=== PATIENT | male | born 1955 | race Caucasian/White ===

== ENCOUNTER → 2018-06-11 10:38 | Outpatient (CLI) | payer OTHER, SELFPAY ==
--- NOTE | 2018-06-11 | DI.RAD.S_ITS ---
PROCEDURE: XR CHEST 2V INDICATIONS: NIGHT SWEATS TECHNIQUE: 2 views of the chest were acquired. COMPARISON: [facility], , CHEST 2 VIEW, 07/26/2010, 14:02. FINDINGS: Surgical changes and devices: None. Lungs and pleura: Lungs are clear. No pleural effusions or pneumothorax. Mediastinum: Mediastinal contours are normal. Heart size is normal. Bones and chest wall: No suspicious bony abnormalities. Soft tissues appear unremarkable. IMPRESSION: No acute cardiopulmonary disease. Dictated by: [facility] Interpreted: Rodríguez Cid MD on 06/11/2018 at 11:11 Approved by: Rodríguez Cid M.D. on 06/11/2018 at 17:00
== END ==
PROVIDERS: Family Provider Family Medicine; PCP Family Medicine; Visit Provider Family Medicine
DX: R61 Generalized hyperhidrosis (principal)
CPT/HCPCS: 71046

== ENCOUNTER → 2018-06-15 09:22 | Outpatient (CLI) | payer OTHER, SELFPAY ==
--- NOTE | 2018-06-15 | DI.ECHO.S_ITS ---
[facility] +---------+ [facility] +---------+ : : [address] : [place] [address] : : : : [id number] : : : : Phone: [phone]+ Echocardiogram Report + + :Name: DIANE OQUENDO Study Date: 06/15/2018 Height: 72 in : :[facility] Weight: 253 lb : : Gender: Male BSA: 2.4 m2 : :: 1955 Age: 63 yrs BP: 144/88 mmHg: :Reason For Study: Murmur : : Performed By: Amanda Rodriguez : :Referring: HUY VALLE : + + Interpretation Summary Left ventricular systolic function is normal without focal wall motion abnormalities with the ejection fraction visually estimated to be 60-65% with mild-moderate concentric left ventricular hypertrophy. Diastolic parameters suggest a relaxation abnormality of the left ventricle, consistent with probable normal filling pressures. The right ventricle is normal in size and function. The right ventricular systolic pressure is estimated to be at least 28 mmHg based on an estimated right atrial pressure of 3 mm Hg. The right atrium is mildly dilated while left atrial size is normal. A possible patent foramen ovale is suspected. The aortic valve is not well visualized but appears to be moderately calcified with moderately reduced leaflet mobility and a bicuspid aortic valve cannot be excluded. There is probable severe aortic stenosis on the basis of a peak aortic velocity of 4.6 m/sec and a mean gradient of 54 mmHg with a calculated aortic valve area of 0.7 cm2, although visually leaflet mobility appears to be better than this indicates with a planimetered aortic valve area of 1.2 automation software engineer?. Clinical correlation is recommended and if the patient has symptoms of aortic stenosis, cardiology consultation is recommended. No aortic regurgitation is present. There is no other significant valvular heart disease. The ascending aorta is moderately enlarged. Procedure: A two-dimensional transthoracic echocardiogram with color flow and Doppler was performed. The study quality was technically adequate. There is no prior echocardiogram noted for this patient. The patient was in normal sinus rhythm during the exam. Left Ventricle: The left ventricle is normal in size. There is mild-moderate concentric left ventricular hypertrophy. There is no echo evidence for significant left ventricular outflow tract obstruction. Left ventricular systolic function is normal without focal wall motion abnormalities. The ejection fraction is estimated to be 60-65%. Diastolic parameters suggest a relaxation abnormality of the left ventricle, consistent with probable normal filling pressures. Right Ventricle: The right ventricle is normal in size and function. Atria: The left atrial size is normal. The right atrium is mildly dilated. A patent foramen ovale is suspected. Mitral Valve: There is mild mitral annular calcification. There is no mitral regurgitation noted. There is trace mitral regurgitation. Aortic Valve: The aortic valve is not well visualized. Leaflet mobility is moderately reduced. The aortic valve is moderately calcified. A bicuspid aortic valve cannot be excluded. There is severe aortic stenosis. The peak aortic velocity is 4.6 m/sec. The aortic valve mean gradient is 54 mmHg. The calculated aortic valve area is 0.7 cm2. The aortic valve area is 1.2 centimeters squared by planimetry. Severity ratio is 0.23. No aortic regurgitation is present. Tricuspid Valve: The tricuspid valve is normal in structure and function. There is a trace or physiologic amount of tricuspid regurgitation. The right ventricular systolic pressure is estimated to be at least 28 mmHg based on an estimated right atrial pressure of 3 mm Hg. Pulmonic Valve: The pulmonic valve is not well seen, but is grossly normal. There is trace pulmonic regurgitation. There is no other significant valvular heart disease. Great Vessels: The aortic root is normal size. The ascending aorta is moderately enlarged. The IVC is of normal diameter and collapses greater than 50% with a sniff. This suggests a low right atrial pressure of 3 mm Hg. Pericardium/ Pleura There is no pericardial effusion. There is no pleural effusion. MMode/2D Measurements & Calculations LVIDd: 4.9 cm LVOT diam: 2.0 cm LVIDs: 2.7 cm Ao root diam: 3.3 cm FS: 45.1 % Aortic Jxn: 3.0 cm IVSd: 1.5 cm asc Aorta Diam: 4.2 cm LVPWd: 1.0 cm Ao Arch Diam (Prox Trans): 2.9 cm LV hui. diameter/BSA (cm/m^2): 2.1 LV sys. diameter/BSA (cm/m^2): 1.1 LA dimension: 4.1 cm RA long axis: 5.2 cm LA A2 area: 17.6 cm2 RA area: 24.2 cm2 LA A4 area: 22.1 cm2 RA vol: 95.9 ml LA length (vol): 5.6 cm RA : 40.7 ml/m2 LA vol: 58.9 ml IVC diam: 1.3 cm LA vol index: 25.0 ml/m2 RVDd major: 6.8 cm RVD1 (basal): 4.2 cm RVD2 (mid): 3.7 cm Doppler Measurements & Calculations Ao V2 max: 464.7 cm/sec LVOT Max Aaron: 108.7 cm/sec Ao V2 mean: 346.7 cm/sec LV V1 max P.7 mmHg Ao max P.4 mmHg LV V1 VTI: 24.8 cm Ao mean P.5 mmHg JAMSHID(I,D): 0.70 cm2 Ao V2 VTI: 106.7 cm JAMSHID(V,D): 0.71 cm2 sev ratio: 0.23 JAMSHID indexed to BSA (cm^2/m^2): 0.30 MV E max aaron: 81.0 cm/sec TR max aaron: 250.3 cm/sec MV A max aaron: 97.7 cm/sec TR max P.1 mmHg MV E/A: 0.83 PA V2 max: 89.1 cm/sec Med Peak E' Aaron: 4.7 cm/sec PA V2 mean: 53.5 cm/sec E/E' med: 17.1 PA mean P.4 mmHg Lat Peak E' Aaron: 4.9 cm/sec PA Accel Time: 0.12 sec E/E' lat: 16.4 E/e' average: 16.7 MV dec time: 0.27 sec MV P1/2t: 79.8 msec MV P1/2t max aaron: 80.5 cm/sec SV(LVOT): 74.9 ml MVA(P1/2t): 2.8 cm2 Reading Physician:ROJELIO
== END ==
PROVIDERS: Family Provider Family Medicine; PCP Family Medicine; Visit Provider Family Medicine
DX: I35.0 Nonrheumatic aortic (valve) stenosis (principal); R01.1 Cardiac murmur, unspecified
CPT/HCPCS: 93306

== ENCOUNTER → 2019-03-18 06:44 | Outpatient (CLI) | payer OTHER, SELFPAY ==
--- NOTE | 2019-03-18 | DI.ECHO.S_ITS ---
[facility] +---------+ Hospital +---------+ : : [address] [place] : : : : [id number] : : : : Phone: [phone]+ Echocardiogram Report + + :Name: DIANE OQUENDO Study Date: 03/18/2019 Height: 72 in : :[facility] Exam Location: [place] Weight: 249 lb : : Gender: Male BSA: 2.3 m2 : :: 1955 Age: 63 yrs BP: 132/70 mmHg: :Reason For Study: Aortic valve stenosis : :Ordering Physician: Payton Alas : :[place] Performed By: Donna Page : + + Interpretation Summary 1) Normal left ventricular size, wall motion, and systolic function (EF 60- 65%). 2) Normal right ventricular size and function. 3) Moderate biatrial enlargement. 4) Severe aortic stenosis (valve area 0.82cm2, mean gradient 59mmHg, severity ratio 0.26). 5) Mildly enlarged ascending aorta (4.1cm diameter). 6) Compared to the Echo done 06/15/2018, no significant change. Procedure: A two-dimensional transthoracic echocardiogram with color flow and Doppler was performed. The study quality was technically adequate. Comparison is made with the echocardiogram of 06/15/2018. The patient was in normal sinus rhythm during the exam. Left Ventricle: Proximal septal thickening is noted. Left ventricular wall thickness is borderline increased. The left ventricle is normal in size. The ejection fraction is estimated to be 60-65%. There are no focal wall motion abnormalities. Right Ventricle: The right ventricle is normal in size and function. Atria: Both atria are moderately dilated. There is no Doppler evidence for an interatrial shunt. Mitral Valve: There is mild mitral annular calcification. The mitral valve leaflets appear mildly thickened, but open well. There is trace mitral regurgitation. Aortic Valve: A bicuspid aortic valve cannot be excluded. The aortic valve is moderately calcified. The peak aortic velocity is 4.6 m/sec. The peak aortic velocity on the previous exam was 4.6 m/sec. The calculated aortic valve area is 0.82 cm2. The aortic valve area is 1.0 centimeters squared by planimetry. The aortic valve mean gradient is 59.2 mmHg. There is moderate to severe aortic stenosis. There is trace aortic regurgitation. Tricuspid Valve: The tricuspid valve is normal in structure and function. There is trace tricuspid regurgitation. Pulmonary artery pressures cannot be estimated because of the lack of a measurable TR jet velocity. Pulmonic Valve: The pulmonic valve is not well visualized. Great Vessels: The aortic root is normal size. The ascending aorta is mildly enlarged. The pulmonary artery is not well visualized, but is probably normal size. The IVC is of normal diameter and collapses greater than 50% with a sniff. This suggests a low right atrial pressure of 3 mm Hg. Pericardium/ Pleura There is no pericardial effusion. There is no pleural effusion. MMode/2D Measurements & Calculations LVIDd: 5.1 cm LVOT diam: 2.0 cm LVIDs: 3.9 cm Ao root diam: 3.8 cm FS: 23.4 % asc Aorta Diam: 4.1 cm EPSS: 0.24 cm IVSd: 1.1 cm LVPWd: 0.78 cm LV hui. diameter/BSA (cm/m^2): 2.2 LV sys. diameter/BSA (cm/m^2): 1.7 LA A2 area: 29.6 cm2 RA long axis: 5.3 cm LA A4 area: 23.5 cm2 RA area: 25.1 cm2 LA length (vol): 5.6 cm RA vol: 101.2 ml LA vol: 105.9 ml RA : 43.3 ml/m2 LA vol index: 45.3 ml/m2 IVC diam: 2.0 cm RVD1 (basal): 4.2 cm RVD2 (mid): 4.0 cm JAMSHID (plan): 1.0 cm2 TAPSE: 2.3 cm Doppler Measurements & Calculations Ao V2 max: 456.9 cm/sec LVOT Max Aaron: 115.9 cm/sec Ao V2 mean: 377.5 cm/sec LV V1 max P.4 mmHg Ao max P.5 mmHg LV V1 VTI: 28.1 cm Ao mean P.2 mmHg JAMSHID(I,D): 0.82 cm2 Ao V2 VTI: 106.8 cm JAMSHID(V,D): 0.79 cm2 sev ratio: 0.26 JAMSHID indexed to BSA (cm^2/m^2): 0.35 MV E max aaron: 88.9 cm/sec PA V2 max: 77.3 cm/sec MV A max aaron: 78.9 cm/sec PA V2 mean: 52.9 cm/sec MV E/A: 1.1 PA mean P.2 mmHg Med Peak E' Aaron: 5.7 cm/sec PA Accel Time: 0.08 sec E/E' med: 15.7 Lat Peak E' Aaron: 6.7 cm/sec E/E' lat: 13.3 E/e' average: 14.5 MV P1/2t: 61.7 msec MV /2t max aaron: 88.9 cm/sec SV(LVOT): 87.6 ml MVA(P1/2t): 3.6 cm2 Reading Physician:06:44 PM
== END ==
PROVIDERS: Family Provider Family Medicine; PCP Family Medicine; Visit Provider Internal Medicine Cardiovascular Disease
DX: I35.0 Nonrheumatic aortic (valve) stenosis (principal); I77.89 Other specified disorders of arteries and arterioles
CPT/HCPCS: 93306

== ENCOUNTER → 2019-06-17 10:19 | Outpatient (CLI) | payer OTHER, MEDICARE, SELFPAY ==
--- NOTE | 2019-06-17 | DI.RAD.S_ITS ---
PROCEDURE: XR SHOULDER RT MIN 2V INDICATIONS: BILAT SHOULDER PAIN TECHNIQUE: 3 views of the shoulder were acquired. COMPARISON: [facility], CR, XR CHEST 2V, 06/11/2018, 10:46. [facility], CR, XR SHOULDER LT MIN 2V, 06/17/2019, 10:25. FINDINGS: Bones: No fractures or dislocations. No suspicious bony lesions. Visualized ribs appear intact. Mild degenerative change of the AC joint appreciated. Minimal heterogeneity at the glenohumeral joint. Soft tissues: No suspicious soft tissue calcifications. IMPRESSION: Mild degenerative change of the acromioclavicular joint. Dictated by: Juan Shah M.D. on 06/17/2019 at 12:56 Approved by: Juan Shah M.D. on 06/17/2019 at 12:58
--- NOTE | 2019-06-17 | DI.RAD.S_ITS ---
PROCEDURE: XR SHOULDER LT MIN 2V INDICATIONS: BILAT SHOULDER PAIN TECHNIQUE: 3 views of the shoulder were acquired. COMPARISON: None. FINDINGS: Bones: No fractures or dislocations. No suspicious bony lesions. Visualized ribs appear intact. Mild degenerative change. Soft tissues: No suspicious soft tissue calcifications. IMPRESSION: Mild degenerative change. Dictated by: Juan Shah M.D. on 06/17/2019 at 12:58 Approved by: Juan Shah M.D. on 06/17/2019 at 12:59
--- NOTE | 2019-06-17 | DI.RAD.S_ITS ---
PROCEDURE: XR TOE RT MIN 2V INDICATIONS: RIGHT GREAT TOE PAIN TECHNIQUE: 3 views of the first toe(s) acquired. COMPARISON: None. FINDINGS: Bones: No fractures or dislocations. No suspicious bony lesions. Interphalangeal joint space narrowing. Small bunion. Soft tissues: No suspicious soft tissue densities. IMPRESSION: Small bunion and interphalangeal joint space narrowing. Dictated by: Juan Shah M.D. on 06/17/2019 at 12:59 Approved by: Juan Shah M.D. on 06/17/2019 at 13:00
== END ==
PROVIDERS: Family Provider Family Medicine; PCP Family Medicine; Referring Provider Family Medicine; Visit Provider Family Medicine
DX: M25.511 Pain in right shoulder (principal); M25.512 Pain in left shoulder; M79.674 Pain in right toe(s); M21.611 Bunion of right foot
CPT/HCPCS: 73030; 73660

== ENCOUNTER → 2020-04-06 14:35 | Outpatient (CLI) | payer OTHER, SELFPAY ==
--- NOTE | 2020-04-06 | DI.ECHO.S_ITS ---
[place] +---------+ Hospital +---------+ : : [address] : [place] [address] : : : : [id number] : : : : Phone: [phone]+ Echocardiogram Report + + :Name: DIANE OQUENDO Study Date: 04/06/2020 Height: 72 in : :[facility] Weight: 230 lb : : Gender: Male BSA: 2.3 m2 : :: 1955 Age: 64 yrs BP: 148/106 mmHg: :Reason For Study: AORTIC STENOSIS : :Ordering Physician: AKANKSHA, : :VIKAS Performed By: Evie Mccurdy : :Referring: VIKAS LUNDY : + + Interpretation Summary 1) Normal left ventricular size, wall motion, and systolic function (EF 60- 65%). 2) Normal right ventricular size and function. 3) Moderate left atrial enlargement. 4) Severe aortic stenosis (valve area 0.89cm2, mean gradient 76mmHg, severity ratio 0.28). 5) Mildly enlarged ascending aorta (4.2cm diameter). 6) Compared to the Echo done 03/18/2019, no significant change. Procedure: A two-dimensional transthoracic echocardiogram with color flow and Doppler was performed. The study quality was technically adequate. Comparison is made with the echocardiogram of 03/18/2019. The patient was in sinus rhythm with heart rates between 71-84 bpm during the exam. Left Ventricle: There is mild concentric left ventricular hypertrophy. The left ventricle is normal in size. The ejection fraction is estimated to be 60- 65%. Diastolic parameters suggest a pseudonormalization pattern, consistent with probable elevated filling pressures. Right Ventricle: The right ventricle is normal in size and function. Atria: The left atrium is moderately dilated. Right atrial size is normal. There is no Doppler evidence for an interatrial shunt. Mitral Valve: There is mild to moderate mitral annular calcification. The mitral valve leaflets appear mildly thickened, but open well. There is trace mitral regurgitation. Aortic Valve: A bicuspid aortic valve cannot be excluded. The aortic valve is severely calcified. There is severe aortic stenosis. The peak aortic velocity is 5.32 m/sec. The aortic valve mean gradient is 76.4 mmHg. The calculated aortic valve area is .89 cm2. No aortic regurgitation is present. Tricuspid Valve: The tricuspid valve is normal in structure and function. There is trace tricuspid regurgitation. Pulmonic Valve: The pulmonic valve leaflets are thin and pliable; valve motion is normal. There is no pulmonic valvular regurgitation. Great Vessels: The aortic root is normal size. The ascending aorta is mildly enlarged. The IVC is of normal diameter and collapses greater than 50% with a sniff. This suggests a low right atrial pressure of 3 mm Hg. Pericardium/ Pleura There is no pericardial effusion. There is no pleural effusion. MMode/2D Measurements & Calculations LVIDd: 5.1 cm LVOT diam: 2.0 cm LVIDs: 3.1 cm Ao root diam: 3.4 cm FS: 38.4 % asc Aorta Diam: 4.2 cm EPSS: 0.92 cm Ao Arch Diam (Prox Trans): 3.3 cm IVSd: 1.2 cm LVPWd: 1.2 cm LV hui. diameter/BSA (cm/m^2): 2.3 LV sys. diameter/BSA (cm/m^2): 1.4 LA A2 area: 24.9 cm2 RA long axis: 5.8 cm LA A4 area: 20.4 cm2 RA area: 20.5 cm2 LA length (vol): 5.1 cm RA vol: 61.7 ml LA vol: 84.5 ml RA : 27.3 ml/m2 LA vol index: 37.4 ml/m2 IVC diam: 1.7 cm RVD1 (basal): 3.7 cm TAPSE: 2.1 cm Doppler Measurements & Calculations Ao V2 max: 532.6 cm/sec LVOT Max Aaron: 142.5 cm/sec Ao V2 mean: 417.9 cm/sec LV V1 max P.1 mmHg Ao max P.5 mmHg LV V1 VTI: 34.3 cm Ao mean P.4 mmHg JAMSHID(I,D): 0.89 cm2 Ao V2 VTI: 122.5 cm JAMSHID(V,D): 0.85 cm2 sev ratio: 0.28 JAMSHID indexed to BSA (cm^2/m^2): 0.40 MV E max aaron: 81.3 cm/sec PA V2 max: 81.6 cm/sec MV A max aaron: 99.4 cm/sec PA V2 mean: 51.7 cm/sec MV E/A: 0.82 PA mean P.3 mmHg Med Peak E' Aaron: 4.8 cm/sec PA pr(Accel): 49.9 mmHg E/E' med: 17.0 Lat Peak E' Aaron: 6.5 cm/sec E/E' lat: 12.5 E/e' average: 14.7 MV dec time: 0.30 sec SV(OT): 109.5 ml Reading Physician:05:41 PM
== END ==
PROVIDERS: Family Provider Family Medicine; PCP Family Medicine; Referring Provider Internal Medicine Cardiovascular Disease; Visit Provider Internal Medicine Cardiovascular Disease
DX: I35.0 Nonrheumatic aortic (valve) stenosis (principal)
CPT/HCPCS: 93306

== ENCOUNTER → 2020-07-22 08:46 | Outpatient (CLI) | payer MEDICARE, SELFPAY ==
[2020-07-22] MEDS: COVID-19 VACC, Ad26(JANSSEN)/PF 0.5 ML IM (08:53)
== END ==
PROVIDERS: Family Provider Family Medicine; PCP Family Medicine; Visit Provider Internal Medicine
DX: Z23 Encounter for immunization (principal)
CPT/HCPCS: 0031A; 91303

== ENCOUNTER → 2020-09-15 13:36 | Outpatient (CLI) | payer OTHER, SELFPAY ==
--- NOTE | 2020-09-15 13:38 | DI.ECHO.S_ITS ---
[place] +---------+ Hospital +---------+ : : [address] : : : : [id number] : : : : Phone: [phone] : [phone] +---------+ Echocardiogram Report + + :Name: DIANE OQUENDO Study Date: 09/15/2020 Height: 72 in : :[facility] ReadingLocation: Weight: 227 lb : : Gender: Male BSA: 2.2 m2 : :: 1955 Age: 65 yrs BP: 130/90 mmHg: :Reason For Study: AORTIC STENOSIS : :Ordering Physician: AKANKSHA, : :VIKAS Performed By: Evie Mccurdy : :Referring: VIKAS LUNDY : + + Interpretation Summary 1) Normal left ventricular size, wall motion, and systolic function (EF 60- 65%). 2) Normal right ventricular size and function. 3) Moderate left atrial enlargement. 4) Severe aortic stenosis (valve area 0.8cm2, mean gradient 73mmHg, severity ratio 0.23). 5) Mildly enlarged ascending aorta (4.3cm diameter). 6) Compared to the Echo done 04/06/2020, no significant change. Procedure: A two-dimensional transthoracic echocardiogram with color flow and Doppler was performed. The study quality was technically adequate. There is no prior echocardiogram noted for this patient. The heart rate ranged between 64-84 bpm during the study. Left Ventricle: The left ventricle is normal in size. There is mild-moderate concentric left ventricular hypertrophy. The ejection fraction is estimated to be 60-65%. Diastolic parameters suggest a pseudonormalization pattern, consistent with probable elevated filling pressures. Right Ventricle: The right ventricle is normal in size and function. Atria: The left atrium is moderately dilated. Right atrial size is normal. There is no Doppler evidence for an interatrial shunt. Mitral Valve: There is mild to moderate mitral annular calcification. The mitral valve leaflets appear mildly thickened, but open well. There is trace mitral regurgitation. Aortic Valve: The aortic valve is severely calcified. A bicuspid aortic valve cannot be excluded. There is severe aortic stenosis. The peak aortic velocity is 5.2 m/sec. The aortic valve mean gradient is 73 mmHg. The calculated aortic valve area is .76 cm2. There is trace aortic regurgitation. Tricuspid Valve: The tricuspid valve is normal in structure and function. There is trace tricuspid regurgitation. Pulmonary artery pressures cannot be estimated because of the lack of a measurable TR jet velocity but the IVC suggests a CVP of around 3 mmHg. Pulmonic Valve: The pulmonic valve is not well seen, but is grossly normal. There is no pulmonic valvular regurgitation. Great Vessels: The aortic root is normal size. The ascending aorta is mildly enlarged. The IVC is of normal diameter and collapses greater than 50% with a sniff. This suggests a low right atrial pressure of 3 mm Hg. Pericardium/ Pleura There is no pericardial effusion. There is no pleural effusion. MMode/2D Measurements & Calculations LVIDd: 4.6 cm LVOT diam: 2.0 cm LVIDs: 2.8 cm Ao root diam: 3.2 cm FS: 38.5 % asc Aorta Diam: 4.3 cm EPSS: 0.84 cm Ao Arch Diam (Prox Trans): 3.0 cm IVSd: 1.3 cm LVPWd: 1.4 cm LV hui. diameter/BSA (cm/m^2): 2.0 LV sys. diameter/BSA (cm/m^2): 1.3 LA A2 area: 27.2 cm2 RA long axis: 5.5 cm LA A4 area: 21.8 cm2 RA area: 21.0 cm2 LA length (vol): 5.5 cm RA vol: 67.8 ml LA vol: 90.6 ml RA : 30.1 ml/m2 LA vol index: 40.3 ml/m2 IVC diam: 1.4 cm RVD1 (basal): 3.6 cm TAPSE: 2.3 cm Doppler Measurements & Calculations Ao V2 max: 519.7 cm/sec LVOT Max Aaron: 132.5 cm/sec Ao V2 mean: 406.9 cm/sec LV V1 max P.0 mmHg Ao max P.0 mmHg LV V1 VTI: 26.3 cm Ao mean P.8 mmHg JAMSHID(I,D): 0.76 cm2 Ao V2 VTI: 113.1 cm JAMSHID(V,D): 0.83 cm2 sev ratio: 0.23 JAMSHID indexed to BSA (cm^2/m^2): 0.34 MV E max aaron: 85.5 cm/sec PA pr(Accel): 32.8 mmHg MV A max aaron: 99.9 cm/sec MV E/A: 0.86 Med Peak E' Aaron: 4.9 cm/sec E/E' med: 17.4 Lat Peak E' Aaron: 5.7 cm/sec E/E' lat: 14.9 E/e' average: 16.2 MV dec time: 0.26 sec SV(LVOT): 85.5 ml Reading Physician:04:39 PM
== END ==
PROVIDERS: Family Provider Family Medicine; PCP Family Medicine; Referring Provider Internal Medicine Cardiovascular Disease; Visit Provider Internal Medicine Cardiovascular Disease
DX: I35.0 Nonrheumatic aortic (valve) stenosis (principal); I77.89 Other specified disorders of arteries and arterioles
CPT/HCPCS: 93306

== ENCOUNTER → 2020-12-12 08:30 | Outpatient (CLI) | payer OTHER, SELFPAY ==
--- NOTE | 2020-12-12 08:34 | DI.RAD.S_ITS ---
PROCEDURE: XR FOOT LT MIN 3V INDICATIONS: PAIN TECHNIQUE: 3 views of the foot were acquired. COMPARISON: None. FINDINGS: Bones: No fractures or dislocations. No suspicious bony lesions. Mild joint space narrowing and periarticular osteophyte formation at the interphalangeal joints of the digits as well as the 1st metatarsophalangeal joint, the tibiotalar, and talonavicular joints.. Soft tissues: No tibiotalar joint effusion. Achilles tendon appears normal. IMPRESSION: Osteoarthritis. No acute fracture. No osseous lesion. If symptoms and/or clinical suspicion for pathology persist, further assessment with repeat, or advanced imaging (e.g., CT, MRI, or bone scan) may be helpful for further assessment. Dictated by: Purvi Plaza M.D. on 12/12/2020 at 8:59 Approved by: Purvi Plaza M.D. on 12/12/2020 at 9:00
== END ==
PROVIDERS: Family Provider Family Medicine; PCP Family Medicine; Referring Provider Chiropractor; Visit Provider Chiropractor
DX: M99.06 Segmental and somatic dysfunction of lower extremity (principal); M25.572 Pain in left ankle and joints of left foot; M19.072 Primary osteoarthritis, left ankle and foot
CPT/HCPCS: 73630

== ENCOUNTER → 2021-10-15 07:56 | Outpatient (CLI) | payer OTHER, SELFPAY ==
--- NOTE | 2021-10-15 | DI.ECHO.S_ITS ---
[facility] +---------+ : : [address] : [address] : [address] : : : : [place], : : : : [place] [address] : : : : Phone: [phone] + [facility]-7339 Echocardiogram Report + + :Name: DIANE OQUENDO Study Date: 10/15/2021 Height: 72 in : :[facility] ReadingLocation: Weight: 230 lb : : Gender: Male BSA: 2.3 m2 : :: 1955 Age: 66 yrs BP: 150/97 mmHg: :Reason For Study: Aortic valve stenosis : :Ordering Physician: Vikas : :Bishop Lundy Performed By: Kevin Bain : :Referring: VIKAS LUNDY : + + Interpretation Summary 1) Moderately increased left ventricular thickness (concentric) with normal size, normal wall motion, and normal systolic function (EF 60-65%). 2) Normal right ventricular size and function. 3) Moderate left atrial enlargement. 4) Severe aortic stenosis (valve area 0.7cm2, mean gradient 83mmHg, severity ratio 0.21). Last echo's measurements were valve area 0.8cm2, mean gradient 73mmHg, severity ratio 0.23. 5) Mildly enlarged ascending aorta (4.2cm diameter). 6) Compared to the Echo done 09/15/2020, severe aortic stenosis has progressed slightly. Procedure: A two-dimensional transthoracic echocardiogram with color flow and Doppler was performed. The study quality was technically adequate. Comparison is made with the echocardiogram of 09/15/2020. The patient was in normal sinus rhythm during the exam. Left Ventricle: The left ventricle is normal in size. There is moderate concentric left ventricular hypertrophy. Left ventricular systolic function is normal. The ejection fraction is estimated to be 60-65%. There are no focal wall motion abnormalities. Diastolic function could not be accurately assessed due to unobtainable data. Right Ventricle: The right ventricle is normal in size and function. Atria: Both atria are normal in size. The interatrial septum grossly appears intact with no obvious evidence for an atrial septal defect. Mitral Valve: There is mild mitral annular calcification. There is mild mitral regurgitation. Aortic Valve: The aortic valve is severely calcified. There is severely reduced leaflet mobility. There is severe aortic stenosis. The aortic valve mean gradient is 83 mmHg. The calculated aortic valve area is .7 cm2. The peak aortic velocity on the previous exam was 5.6 m/sec. There is trace aortic regurgitation. Tricuspid Valve: The tricuspid valve is normal in structure and function. No tricuspid regurgitation. Pulmonary artery pressures cannot be estimated because of the lack of a measurable TR jet velocity. Pulmonic Valve: The pulmonic valve is normal in structure and function. There is a trace or physiologic amount of pulmonic regurgitation. Great Vessels: The aortic root is normal size. The ascending aorta is mildly enlarged. The IVC is of normal diameter and collapses greater than 50% with a sniff. This suggests a low right atrial pressure of 3 mm Hg. Pericardium/ Pleura There is no pericardial effusion. There is no pleural effusion. MMode/2D Measurements & Calculations LVIDd: 4.3 cm LVOT diam: 2.0 cm LVIDs: 2.9 cm Ao root diam: 3.2 cm IVSd: 1.5 cm asc Aorta Diam: 4.2 cm LVPWd: 1.5 cm LV hui. diameter/BSA (cm/m^2): 1.9 LV sys. diameter/BSA (cm/m^2): 1.3 FS: 32.4 % LA A2 area: 22.1 cm2 RA long axis: 5.4 cm LA A4 area: 16.0 cm2 RA area: 16.1 cm2 LA length (vol): 5.3 cm RA vol: 40.9 ml LA vol: 56.5 ml RA : 18.1 ml/m2 LA vol index: 25.0 ml/m2 TAPSE: 2.3 cm Doppler Measurements & Calculations Ao V2 max: 563.2 cm/sec LVOT Max Aaron: 119.7 cm/sec Ao V2 mean: 429.8 cm/sec LV V1 max P.7 mmHg Ao V2 VTI: 134.9 cm LV V1 VTI: 28.9 cm Ao max P.9 mmHg Ao mean P.6 mmHg JAMSHID(I,D): 0.69 cm2 MV E max aaron: 115.5 cm/sec JAMSHID(V,D): 0.68 cm2 MV A max aaron: 98.2 cm/sec JAMSHID indexed to BSA (cm^2/m^2): 0.30 MV E/A: 1.2 sev ratio: 0.21 Med Peak E' Aaron: 4.3 cm/sec E/E' med: 27.1 Lat Peak E' Aaron: 4.2 cm/sec E/E' lat: 27.8 E/e' average: 27.5 MV dec time: 0.20 sec SV(LVOT): 92.4 ml Reading Physician:10:46 AM
== END ==
PROVIDERS: Family Provider Family Medicine; PCP Family Medicine; Referring Provider Internal Medicine Cardiovascular Disease; Visit Provider Internal Medicine Cardiovascular Disease
DX: I08.0 Rheumatic disorders of both mitral and aortic valves (principal); I77.89 Other specified disorders of arteries and arterioles
CPT/HCPCS: 93306

== ENCOUNTER → 2022-04-14 12:43 | Outpatient (CLI) | payer OTHER, SELFPAY ==
--- NOTE | 2022-04-14 12:44 | DI.ECHO.S_ITS ---
[facility]---------+ [facility] +---------+ : : [address] : : : : [id number] : : : : Phone: [phone]+ Echocardiogram Report + + :Name: DIANE OQUENDO Study Date: 04/14/2022 Height: 72 in : :[facility] ReadingLocation: Weight: 230 lb : : Gender: Male BSA: 2.3 m2 : :: 1955 Age: 66 yrs BP: 127/94 mmHg: :Reason For Study: AORTIC STENOSIS : :Ordering Physician: AKANKSHA, : :VIKAS Performed By: Evie Mccurdy : :Referring: VIKAS LUNDY : + + Interpretation Summary 1) Moderately increased left ventricular thickness (concentric) with normal size, normal wall motion, and normal systolic function (EF 60-65%). 2) Normal right ventricular size and function. 3) Moderate left atrial enlargement. 4) Severe aortic stenosis (valve area 0.7cm2, mean gradient 95mmHg, severity ratio 0.22). Last echo's measurements were valve area 0.7cm2, mean gradient 83mmHg, severity ratio 0.21. 5) Mildly enlarged ascending aorta (4.2cm diameter). 6) Compared to the Echo done 10/15/2021, mean gradient has increased from 83mmHg to 95mmHg on this study. Procedure: A two-dimensional transthoracic echocardiogram with color flow and Doppler was performed. The study quality was technically adequate. Comparison is made with the echocardiogram of 10/15/2021. The patient was in sinus rhythm with heart rates between 71-82 bpm during the exam. Left Ventricle: There is moderate concentric left ventricular hypertrophy. The left ventricle is normal in size. The ejection fraction is estimated to be 60-65%. Left ventricular systolic function appears normal without focal wall motion abnormalities. Diastolic parameters suggest a pseudonormalization pattern, consistent with probable elevated filling pressures. Right Ventricle: The right ventricle is normal in size and function. Atria: The left atrium is moderately dilated. Right atrial size is normal. There is no Doppler evidence for an interatrial shunt. Mitral Valve: There is mild mitral annular calcification. The mitral valve leaflets appear mildly thickened, but open well. There is mild mitral regurgitation. Aortic Valve: The aortic valve is severely calcified. There is severely reduced leaflet mobility. There is severe aortic stenosis. The peak aortic velocity is 6.0 m/sec. The aortic valve mean gradient is 95 mmHg. The calculated aortic valve area is 0.6 cm2. There is mild aortic regurgitation. Tricuspid Valve: The tricuspid valve is normal in structure and function. There is trace tricuspid regurgitation. Pulmonary artery pressures cannot be estimated because of the lack of a measurable TR jet velocity. Pulmonic Valve: The pulmonic valve is not well seen, but is grossly normal. There is trace pulmonic regurgitation. Great Vessels: The aortic root is normal size. The ascending aorta is mildly enlarged. The IVC is of normal diameter and collapses greater than 50% with a sniff. This suggests a low right atrial pressure of 3 mm Hg. Pericardium/ Pleura There is no pericardial effusion. There is no pleural effusion. MMode/2D Measurements & Calculations LVIDd: 4.4 cm LVOT diam: 2.0 cm LVIDs: 2.8 cm Ao root diam: 3.1 cm FS: 36.3 % asc Aorta Diam: 4.3 cm IVSd: 1.4 cm Ao Arch Diam (Prox Trans): 3.0 cm LVPWd: 1.5 cm LV hui. diameter/BSA (cm/m^2): 1.9 LV sys. diameter/BSA (cm/m^2): 1.2 LA A2 area: 27.5 cm2 RA long axis: 5.4 cm LA A4 area: 26.6 cm2 RA area: 17.8 cm2 LA length (vol): 6.1 cm RA vol: 49.8 ml LA vol: 102.2 ml RA : 22.0 ml/m2 LA vol index: 45.2 ml/m2 IVC diam: 1.5 cm RVD1 (basal): 3.7 cm RVD2 (mid): 2.8 cm TAPSE: 2.0 cm Doppler Measurements & Calculations Ao V2 max: 597.6 cm/sec LVOT Max Aaron: 117.2 cm/sec Ao V2 mean: 435.3 cm/sec LV V1 max P.5 mmHg Ao max P.8 mmHg LV V1 VTI: 27.7 cm Ao mean P.9 mmHg JAMSHID(I,D): 0.69 cm2 Ao V2 VTI: 125.7 cm JAMSHID(V,D): 0.61 cm2 sev ratio: 0.22 JAMSHID indexed to BSA (cm^2/m^2): 0.31 MV E max aaron: 118.7 cm/sec PA pr(Accel): 44.7 mmHg MV A max aaron: 76.4 cm/sec MV E/A: 1.6 Med Peak E' Aaron: 5.1 cm/sec E/E' med: 23.2 Lat Peak E' Aaron: 5.0 cm/sec E/E' lat: 23.7 E/e' average: 23.5 MV dec time: 0.22 sec SV(LVOT): 86.9 ml Reading Physician:05:52 PM
== END ==
PROVIDERS: Family Provider Family Medicine; PCP Family Medicine; Referring Provider Internal Medicine Cardiovascular Disease; Visit Provider Internal Medicine Cardiovascular Disease
DX: I08.0 Rheumatic disorders of both mitral and aortic valves; I77.89 Other specified disorders of arteries and arterioles
CPT/HCPCS: 93306

== ENCOUNTER → 2022-10-20 09:06 | Outpatient (CLI) | payer OTHER, SELFPAY ==
--- NOTE | 2022-10-20 | DI.ECHO.S_ITS ---
[facility]+ [facility] +---------+ : : [address] : : : : [id number] : : : : Phone: [phone]+ Echocardiogram Report + + :Name: DIANE OQUENDO Study Date: 10/20/2022 Height: 72 in : :[facility] ReadingLocation: Weight: 225 lb : : Gender: Male BSA: 2.2 m2 : :: 1955 Age: 67 yrs BP: 132/87 mmHg: :Reason For Study: PRESENCE OF PROSTHETIC HEART VALVE : :Ordering Physician: RUTHIE, : :MERRY Performed By: Evie Mccurdy : :Referring: HUY VALLE : + + Interpretation Summary 1) Normal left ventricular size, wall motion, and systolic function (EF 55- 60%). 2) Normal right ventricular size and function. 3) There is a bioprosthetic aortic valve that is well seated and opens well (mean gradient 25mmHg). No aortic regurgitation is present. 4) Mildly enlarged ascending aorta (4.2cm diameter). 5) Compared to the Echo done 04/14/2022, severely stenotic aortic valve has been replaced by a well functional bioprosthetic aortic valve. Procedure: A two-dimensional transthoracic echocardiogram with color flow and Doppler was performed. The study quality was technically adequate. Comparison is made with the echocardiogram of 04/14/2022. The patient was in sinus rhythm with heart rates between 76-82 bpm during the exam. Left Ventricle: The left ventricle is normal in size. There is borderline concentric left ventricular hypertrophy. The ejection fraction is estimated to be 55-60%. Left ventricular systolic function appears normal without focal wall motion abnormalities. Right Ventricle: The right ventricle is normal in size and function. Atria: The left atrial size is normal. Right atrial size is normal. There is no Doppler evidence for an interatrial shunt. Mitral Valve: The mitral valve leaflets appear mildly thickened, but open well. There is mild mitral annular calcification. There is mild mitral regurgitation. Aortic Valve: There is a prosthetic aortic valve. The peak aortic velocity is 3.2 m/sec. The aortic valve mean gradient is 25 mmHg. The calculated aortic valve area is 1.5 cm2. No aortic regurgitation is present. Tricuspid Valve: The tricuspid valve is normal in structure and function. There is trace tricuspid regurgitation. Pulmonary artery pressures cannot be estimated because of the lack of a measurable TR jet velocity. Pulmonic Valve: The pulmonic valve is not well visualized. There is trace pulmonic regurgitation. Great Vessels: The aortic root is not well visualized but is probably normal size. The ascending aorta is mildly enlarged. The IVC is of normal diameter and collapses greater than 50% with a sniff. This suggests a low right atrial pressure of 3 mm Hg. Pericardium/ Pleura There is no pericardial effusion. There is no pleural effusion. MMode/2D Measurements & Calculations LVIDd: 4.9 cm LVOT diam: 2.0 cm LVIDs: 3.3 cm asc Aorta Diam: 4.2 cm FS: 31.9 % Ao Arch Diam (Prox Trans): 3.3 cm EPSS: 0.76 cm IVSd: 1.1 cm LVPWd: 1.0 cm LV hui. diameter/BSA (cm/m^2): 2.2 LV sys. diameter/BSA (cm/m^2): 1.5 LA A2 area: 22.5 cm2 RA long axis: 5.9 cm LA A4 area: 18.8 cm2 RA area: 19.4 cm2 LA length (vol): 5.6 cm RA vol: 54.3 ml LA vol: 63.5 ml RA : 24.3 ml/m2 LA vol index: 28.3 ml/m2 IVC diam: 1.3 cm RVD1 (basal): 3.7 cm RVD2 (mid): 3.0 cm TAPSE: 1.7 cm Doppler Measurements & Calculations Ao V2 max: 315.3 cm/sec LVOT Max Aaron: 140.3 cm/sec Ao V2 mean: 228.8 cm/sec LV V1 max P.9 mmHg Ao max P.8 mmHg LV V1 VTI: 27.7 cm Ao mean P.5 mmHg JAMSHID(I,D): 1.5 cm2 Ao V2 VTI: 61.6 cm JAMSHID(V,D): 1.5 cm2 sev ratio: 0.45 JAMSHID indexed to BSA (cm^2/m^2): 0.65 MV E max aaron: 96.5 cm/sec PA V2 max: 111.1 cm/sec MV A max aaron: 96.9 cm/sec PA V2 mean: 74.4 cm/sec MV E/A: 1.00 PA mean P.6 mmHg Med Peak E' Aaron: 6.0 cm/sec PA pr(Accel): 37.9 mmHg E/E' med: 16.2 Lat Peak E' Aaron: 8.3 cm/sec E/E' lat: 11.6 E/e' average: 13.9 MV dec time: 0.28 sec SV(JACKI): 90.2 ml Reading Physician:12:26 PM
== END ==
PROVIDERS: Family Provider Family Medicine; PCP Family Medicine; Referring Provider Nurse Practitioner Acute Care; Visit Provider Nurse Practitioner Acute Care
DX: I34.0 Nonrheumatic mitral (valve) insufficiency (principal); I77.89 Other specified disorders of arteries and arterioles; Z95.2 Presence of prosthetic heart valve
CPT/HCPCS: 93306

== ENCOUNTER 2023-03-23 08:30 | Outpatient (RCR) | payer OTHER, SELFPAY ==
--- OUTSIDE RECORDS SUMMARY | 2023-04-14 14:44 | XMS_ITS | Referral Summary ---
Author Name Unknown Organization [facility] Address [address] [place] [address] Care Team Providers Care Farm [place] Name Role Phone Harish Luna Primary Care Provider [phone] Reason for Referral * Rehabilitation - Outpatient (Routine) - Authorized Specialty Diagnoses / Procedures Referred By Blaise don Referred To Contact Cardiology Diagnoses S/P AVR (aortic valve replacement) Carina Vasquez ARNP [address] [place] [id number] [id number] Referral ID Status Reason Start Date Expiration Date V isits Requested Visits Authorized [id number] Authorized 09/12/2022 09/07/2023 6 6 Reason for Visit * Reason Comments Follow-up Encounter Details Date Type Department Care Team Description 09/12/2022 10:00 AM PDT Office Visit [facility] Cardiology [address], [place] [id number] Carina Vasquez ARNP [address] [place] [id number] S/P AVR (aortic valve replacement) (Primary Dx); Hyperlipidemia, unspecified hyperlipidemia type; Essential hypertension Allergies Active Allergy Reactions Criticality Noted Date Comments Tetanus Vaccines And Toxoid Swelling Medium 05/13/20 22 documented as of this encounter (statuses as of 02/06/2023) Medications Medication Sig Dispensed Refills Start Date End Date Status apixaban (ELIQUIS) 5 mg tablet Take 1 tablet (5 mg total) by mouth 2 (two) times a day 180 tablet 3 09/01/2022 Active cetirizine (ZyrTEC) 10 mg tablet Take 1 tablet (10 mg total) by mouth daily 0 Active atorvastatin (LIPITOR) 10 mg tablet Take 1 tablet (10 mg total) by mouth daily 0 08/18/2018 3 Discontinued(Ther apy completed) hydroCHLOROthiaz reid (HYDRODIURIL) 25 mg tablet Take 1 tablet (25 mg total) by mouth daily 0 08/18/2018 3 Discontinued(Ther apy completed) losartan (COZAAR) 100 mg tablet Take 1 tablet (100 mg total) by mouth once daily 90 tablet 3 09/01/2022 3 Discontinued(Reor tony) aspirin 81 mg EC tablet Take 1 tablet (81 mg total) by mouth daily 30 tablet 11 09/01/2022 3 Discontinued documented as of this encounter (statuses as of 02/06/2023) Active Problems No known active problems documented as of this encounter (statuses as of 02/06/2023) Social History Tobacco Use Types Packs/Day Years Used Date Smoking Tobacco: Never Smokeless Tobacco: Never Tobacco Cessation:Counseling Given: Not Answered Alcohol Use Standard Drinks/Week Comments Yes 6 (1 standard drink = 0.6 oz pur e alcohol) Sex and Gender Information Value Date Recorded Sex Assigned at Not on file Gender Identity Not on file Sexual Orientation Not on file Job Start Date Occupation Industry Not on file Not on file Not on file documented as of this encounter Last Filed Vital Signs Vital Sign Reading Time Taken Comments Blood Pressure 128/76 09/12/2022 9:52 AM PDT Pulse 80 09/12/2022 9:52 AM PDT Temperature - - Respiratory Rate - - Oxygen Saturation - - Inhaled Oxygen Concentration - - Weight 105 kg (231 lb) 09/12/2022 9:52 AM PDT Height 182.9 cm (6' 0.01) 09/12/2022 9:52 AM PD T Body Mass Index 31.32 09/12/2022 9:52 AM PDT documented in this encounter Progress Notes * MARCO Vela - 09/12/2022 10:00 AM PDT Plan: Fasting labs to be done prior to follow up with Dr. Lundy. Nothing to eat 10-12 hrs prior. Okay towait and do these labs when you do the ones for your PCP. Repeat echocardiogram prior to following up with Dr. Lundy. Sternal precautions x 8 weeks 10/07/22. Wait til 11/07/22 to resume unsrestricted heavy actives with your arms. Cardiac Rehab referral placed. * MARCO Vela - 09/12/2022 10:00 AM PDT Subjective Patient ID: Paul Clinton is a 67 y.o. male that presents today for had concerns including Follow-up. HPI: Romeo Montano is a 67 y/o M with a PMH of aortic stenosis s/p AVR (23 mm Borjas magna model) 08/02/[address] Rodriguez at [place], post op afib, ascending aorta enlargement, HTN and HLD who presents post op. He is here with his Margaret. Overall he reports he is doing well post operatively. He reports his breathing and energy have improved since surgery. He is walking daily and ready to do more activity. He denies CP and palpitaitons. He is suffering from gout, but has an appointment to see his PCP this coming Monday. He has been taking his VS and weight daily at home. Bps consistently 120s/60s-70s. He is down to his presurgical weight. PROBLEM LIST: # Aortic stenosis s/p AVR (23 mm Borjas magna) 08/02/[address] Rodriguez at [place] # Ascending aorta enlargement # Post op Atrial Fibrillation # HTN # HLD Fam Hx: Dad age 54 from [place] but he was heavy smoker Social History Socioeconomic History ??? Marital status: Tobacco Use ??? Smoking status: Never ??? Smokeless tobacco: Never Substance and Sexual Activity ??? Alcohol use: Yes Alcohol/week: 6.0 standard drinks Types: 2 Glasses of wine, 2 Cans of beer, 2 Shots of liquor per week ??? Drug use: Never Allergies Allergen Reactions ??? Tetanus Vaccines And Toxoid Swelling Current Medication List Sig apixaban (ELIQUIS) 5 mg tablet Take 1 tablet (5 mg total) by mouth 2 (two) times a day aspirin 81 mg EC tablet Take 1 tablet (81 mg total) by mouth daily cetirizine (ZyrTEC) 10 mg tablet Take 1 tablet (10 mg total) by mouth daily losartan (COZAAR) 100 mg tablet Take 1 tablet (100 mg total) by mouth once daily atorvastatin (LIPITOR) 10 mg tablet (Discontinued) Take 1 tablet (10 mg total) by mouth daily hydroCHLOROthiazide (HYDRODIURIL) 25 mg tablet (Discontinued) Take 1 tablet (25 mg total) by mouth daily Review of Systems Constitutional: Negative for fatigue and unexpected weight change. Eyes: Negative for visual disturbance. Respiratory: Negative for chest tightness and shortness of breath. Cardiovascular: Negative for chest pain, palpitations and leg swelling. Gastrointestinal: Negative for blood in stool. Endocrine: Negative for polydipsia. Genitourinary: Negative for hematuria. Skin: Negative for rash. Neurological: Negative for dizziness, syncope, weakness, light-headedness and numbness. Hematological: Does not bruise/bleed easily. Psychiatric/Behavioral: The patient is not nervous/anxious. All other systems reviewed and are negative. Objective BP 128/76 (BP Location: Left arm, Patient Position: Sitting) Pulse 80 Ht 1.829 m Wt 105 kg BMI 31.32 kg/m?? Physical Exam: General appearance: No apparent distress, well-nourished, pleasant, cooperative HEET: Normocephalic atraumatic, no scleral icterus, tongue midline, mucous membranes moist Neck: supple Cardiovascular: RRR, normal S1 and normal S2, 2/6 systolic murmur, PMI nondisplaced, no JVD, no peripheral edema Respiratory: Good aeration, CTAB Abdomen: Soft, nontender, nondistended, + bowel sounds Neuro: Alert, no facial droop, no gross motor deficits Psych: appropriate affect Skin: no rashes on face, neck, and lower extremities. Sternal incision clean dry and intact. No erythema or drainage. [facility] 05/13/2022: Left main with no angiographic disease. LAD no angiographic disease. Left circumflex no angiographic disease. RCA no angiographic disease. Echo 04/14/2022: 1) Moderately increased left ventricular thickness (concentric) with normal size, normal wall motion, and normal systolic function (EF 60-65%). 2) Normal right ventricular size and function. 3) Moderate left atrial enlargement. 4) Severe aortic stenosis (valve area 0.7cm2, mean gradient 95mmHg, severity ratio 0.22). Last echo's measurements were valve area 0.7cm2, mean gradient 83mmHg, severity ratio 0.21. 5) Mildly enlarged ascending aorta (4.2cm diameter). 6) Compared to the Echo done 10/15/2021, mean gradient has increased from 83mmHg to 95mmHg on this study. ECG 03/18/2019 sinus rhythm with LVH related repolarization changes Labs 06/11/2018: HbA1c 6.2%, WBC 6.7, Hct 51.2, Plt 223 Labs 03/22/2019: sodium 136, potassium 4.0, chloride 97, CO2 34, BUN 21, Cr 0.99, TC 153, HDL 79, LDL 57, TG 87, TSH 1.85, WBC 8.1, Hct 49.5, Plt 243 Labs 04/16/2020: sodium 137, potassium 4.0, chloride 98, cO2 32, BUN 17, Cr 1.0, TC 155, HDL 73, TG 88, LDL 64, WBC 8.9, HCt 47.5, Plt 259 Labs 08/05/2022: WBC 11.08, RBC 3.3, hemoglobin 11.1, hematocrit 34.5, platelet 86, sodium 139, potassium 3.8, chloride 104, CO2 27, calcium 8.5, BUN 18, creatinine 0.73, ALT 21, AST 33, mag 1.8. Hemoglobin A1c 5.8 Assessment/Plan Comments: 1. S/P AVR (aortic valve replacement) XTRNL Referral to Cardiac Rehabilitation, ECHOCARDIOGRAM COMPLETE 2. Hyperlipidemia, unspecified hyperlipidemia type Lipid panel (Fasting) 3. Essential hypertension Comprehensive Metabolic Panel (CMP) Expires 12 Months, CBC w/ diff Lab Collect # Aortic stenosis s/p AVR 08/02/[address] Rodriguez at [place]: Pt is doing well postoperatively. Plan: - Repeat TTE prior to follow up with Dr. Lundy - Cardiac rehab referral sent. - Per his surgical team: Sternal precautions x 8 weeks 10/07/22. Wait til 11/07/22 to resume unsrestricted heavy actives with your arms. - Asa 81 mg daily - Antibiotic prophylaxis prior to dental work discussed # Post op Atrial Fibrillation: Pt denies palpitations. Amiodarone taper finished Plan: - Continue eliquis 5 mg BID as prescribed by surgical team for now. CHADSVASC score 2 for HTN and age. # HTN: Well controlled at home with Bps consistently 120s/60s-70s. - Continue losartan 100 mg daily. # HLD: atorvastatin 10 mg discontinued by surgical team. No CAD on recent C. - Repeat fasting lipid panel prior to follow up with Dr. Lundy. Follow up with Dr. Lundy as scheduled 11/08/22 with labs and echo prior. In the interim, if patientdevelops worsening of cardiovascular symptoms, advised to call us. Electronically signed by MARCO Vela 09/12/2022 12:12 PM documented in this encounter Miscellaneous Notes * Addendum Note - Amadou Marrufo - 09/12/2022 10:00 AM PDTAddended by: AMAODU MARRUFO on: 09/22/2022 12:53 PM Modules accepted: Orders documented in this encounter Plan of Treatment Scheduled Referrals Name Type Priority Associated Diagnoses Order Schedule XTRNL Referral to Cardiac Rehabilitation Outpatient Referral Routine S/P AVR (aortic valve replacement) Ordered: 09/12/2022 documented as of this encounter Results * CBC w/ diff Lab Collect (09/20/2022) Blood Venous blood / Unknown Carina LARA LAB BLOOD ORDERABL ES EXTERNAL LAB AGENCY * Lipid panel (Fasting) (09/20/2022) Blood Venous blood / Unknown Carina Vasquez MARCO LAB BLOOD ORDERABL ES * Comprehensive Metabolic Panel (CMP) Expires 12 Months (09/20/2022) Blood Venous blood / Unknown Carina GRAYP LAB BLOOD ORDERABL ES documented in this encounter Visit Diagnoses Diagnosis S/P AVR (aortic valve replacement)- Primary Heart valve replaced by other means Hyperlipidemia, unspecified hyperlipidemia type Essential hypertension Unspecified essential hypertension documented in this encounter Advance Directives Latest Code Status on File Code Status Date Activated Date Inactivated Comments Full Code 05/13/2022 9:25 AM 05/14/2022 2:41 AM Care Teams Farm [place] Relationship Specialty Start Date End Date Harish Luna [address] [place], [place] [id number] PCP - General Family Medicine 06/25/18 documented as of this encounter
--- OUTSIDE RECORDS SUMMARY | 2023-04-14 15:10 | XMS_ITS | Referral Summary ---
Author Name Unknown Organization [facility] Address [address] [place] [address] Care Team Providers Care Brand Ambassador Promotional Model Name Role Phone Harish Luna Primary Care Provider [phone] Reason for Referral * Hospital - Outpatient (Routine) - Authorized Specialty Diagnoses / Procedures Referred By Contac t Referred To Contact Diagnoses S/P AVR (aortic valve replacement) Payton Lundy MD [address] [place] [id number] [address] Referral ID Status Reason Start Date Expiration Date Visits Requested Visits Authorized [id number] Authorized Patient Preference 10/05/2022 09/30/2023 36 36 Reason for Visit * Reason Onset Date Comments Pt unable to go to Cardia c Rehab and needs docs faxed 09/28/2022 To cardiac rehab . Plejeannette advise what needs to be faxed. Thank you. Encounter Details Date Type Department Care Team Description 09/28/2022 Telephone [facility] Cardiology [address], [address] [place] [id number] Carina Vasquez ARNP [address] [place] [address] [place] [id number] Pt unable to go to Cardiac Rehab and needs docs faxed (To cardiac rehab [phone]. Lorenzo advise what needs to be faxed. Thank you.) Allergies Active Allergy Reactions Severity Noted Date Comments Tetanus Vaccines And Toxoid Swelling Medium 05/13/20 22 documented as of this encounter (statuses as of 10/05/2022) Medications Medication Sig Dispensed Refills Start Date End Date Status losartan (COZAAR) 100 mg tablet Take 1 tablet (100 mg total) by mouth once daily 90 tablet 3 09/01/2022 Active apixaban (ELIQUIS) 5 mg tablet Take 1 tablet (5 mg total) by mouth 2 (two) times a day 180 tablet 3 09/01/2022 Active aspirin 81 mg EC tablet Take 1 tablet (81 mg total) by mouth daily 30 tablet 11 09/01/2022 09/01/2023 Active cetirizine (ZyrTEC) 10 mg tablet Take 1 tablet (10 mg total) by mouth daily 0 Active documented as of this encounter (statuses as of 10/05/2022) Active Problems No known active problems documented as of this encounter (statuses as of 10/05/2022) Social History Tobacco Use Types Packs/Day Years Used Date Smoking Tobacco: Never Smokeless Tobacco: Never Alcohol Use Standard Drinks/Week Comments Yes 6 (1 standard drink = 0.6 oz pur e alcohol) Sex Assigned at Date Recorded Not on file Job Start Date Occupation Industry Not on file Not on file Not on file documented as of this encounter Miscellaneous Notes * Addendum Note - Florian Thomson RN - 10/05/2022 8:42 AM PDTAddended by: FLORIAN THOMSON on: 10/05/2022 08:42 AM Modules accepted: Orders * Telephone Encounter - Florian Thomson RN - 10/05/2022 8:38 AM PDT Spoke with cardiac rehab and the problem was referral was sent with dx CAD and pt did not qualify. Informed that had AVR in July. Referral replaced for CR with AVR as diagnosis. Can you please process and fax appropriate information to . Thanks! Pt was informed that reprocessing referral. * Telephone Encounter - Carmela Meraz RN - 10/04/2022 10:30 AM PDT Received messages RE: Pt can't go to Cardiac Rehab at d/t missing order, or documentation. Called Pt. NO ANSWER/ Left message for return call. Also reaching out to staff asking, 1) what needs to be faxed to cardiac rehab, ? Message sent with high priority to MA asking above. * Telephone Encounter - Brain Whipple - 09/28/2022 1:20 PM PDT Patient called in and stated that he is wanting to know when he will be scheduled for cardiac rehab. Orders are still pending. Thank you documented in this encounter Plan of Treatment Upcoming Encounters Date Type Specialty Care Team Description 11/08/2022 Office Visit Cardiology Payton Lundy MD [address] [place], [place] [id number] Scheduled Referrals Name Type Priority Associated Diagnoses Order Schedule XTRNL Referral to Cardiac Rehabilitation Outpatient Referral Routine S/P AVR (aortic valve replacement) Ordered: 10/05/2022 documented as of this encounter Visit Diagnoses Diagnosis S/P AVR (aortic valve replacement)- Primary Heart valve replaced by other means documented in this encounter Insurance Payer Benefit Plan / Group Subscriber ID Effective Dates Phone Address Type [employer] [id number] 2019-e [address] [address] [place] [address] documented as of this encounter Advance Directives Latest Code Status on File Code Status Date Activated Date Inactivated Comments Full Code 05/13/2022 9:25 AM 05/14/2022 2:41 AM Care Teams Brand Ambassador Promotional Model Relationship Specialty Start Date End Date Harish Luna [address] [place] [address] PCP - General Family Medicine 06/25/18 documented as of this encounter
== END 2023-03-23 11:44 ==
LOC: CAR 08:30
PROVIDERS: Family Provider Family Medicine; PCP Family Medicine; Referring Provider Internal Medicine Cardiovascular Disease; Visit Provider Internal Medicine Cardiovascular Disease
DX: Z95.2 Presence of prosthetic heart valve (principal)
CPT/HCPCS: 93798

== ENCOUNTER → 2023-05-26 11:17 | Outpatient (CLI) | payer OTHER, SELFPAY ==
[2023-05-26 11:52] LABS: Add Manual Diff / Slide Review NO; Basophils Absolute Auto 0 /uL (0-100); Basophils Percent Auto 0.7 % (0-2); Eosinophils Absolute Auto 100 /uL (0-450); Eosinophils Percent Auto 1.8 % (2-4); Hematocrit 51.5 % (41-53); Hemoglobin 17.4 g/dL (13.5-17.5); Lymphocytes Absolute Auto 1100 /uL (1100-4500); Lymphocytes Percent Auto 19.9 % (25-40); Mean Corpuscular HGB Conc 33.9 % (30-36); Mean Corpuscular Hemoglobin 30.8 PG (26-34); Monocytes Absolute Auto 600 /uL (0-900); Monocytes Percent Auto 9.9 % (3-14); Neutrophils Absolute Auto 3900 /uL (1500-7000); Neutrophils Percent Auto 67.7 % (50-75); Platelet Count 242 X10^3/uL (150-400); Red Blood Cell Count 5.66 X10^6/uL (4.5-5.9); Red Cell Distribution Width 13.3 % (11.6-14.8); White Blood Cell Count 5.8 X10^3/uL (4.5-11.0)
[2023-05-26 12:11] LABS: Alanine Aminotransferase 64 IU/L (<50); Albumin 4.6 g/dL (3.5-5.0); Albumin Globulin Ratio 1.3 (1.0-2.8); Alkaline Phosphatase 62 U/L (38-126); Aspartate Aminotransferase 38 IU/L (17-59); BUN Creatinine Ratio 23.4 (6-22); Blood Urea Nitrogen 18 mg/dL (9-20); Calcium 10.3 mg/dL (8.4-10.2); Carbon Dioxide 30 mmol/L (22-32); Chloride 97 mmol/L (98-107); Estimated Glomerular Filt Rate > 60 mL/min (>60); Globulin 3.5 g/dL (1.7-4.1); Glucose 111 mg/dL (80-110); HEMOLYSIS 17 (0-50); Potassium 4.5 mmol/L (3.4-5.1); Sodium 134 mmol/L (137-145); Total Protein 8.1 g/dL (6.3-8.2); Uric Acid 3.8 mg/dL (3.5-8.5)
[2023-05-26 12:22] LABS: Erythrocyte Sedimentation Rate 1 MM/HR (0-15)
== END ==
PROVIDERS: Family Provider Family Medicine; PCP Family Medicine; Referring Provider Family Medicine; Visit Provider Family Medicine
DX: I10 Essential (primary) hypertension (principal); M10.9 Gout, unspecified
CPT/HCPCS: 36415; 80053; 84550; 85025; 85651

== ENCOUNTER → 2023-06-14 15:08 | Outpatient (CLI) | payer OTHER, SELFPAY ==
--- NOTE | 2023-06-14 15:10 | DI.US.S_ITS ---
PROCEDURE: US PERIPH VENOUS LOW EXTREM RT INDICATIONS: Right leg pain TECHNIQUE: Real-time imaging, as well as color and pulse Doppler interrogation, were performed of the lower extremity deep veins from the inguinal ligament to the popliteal fossa, with documentation of the visualized calf veins. COMPARISON: None. FINDINGS: The common femoral, femoral, popliteal, and the visualized calf veins are normally compressible, and free of intraluminal thrombus. Color and pulse Doppler demonstrate normal phasic intraluminal flow. There is normal augmentation response to distal compression maneuver. IMPRESSION: No findings of lower extremity deep venous thrombosis. Dictated by: Manjit Skelton M.D. on 06/14/2023 at 15:06 Approved by: Manjit Skelton M.D. on 06/14/2023 at 15:06
== END ==
PROVIDERS: Family Provider Family Medicine; PCP Family Medicine; Referring Provider Nurse Practitioner Family; Visit Provider Nurse Practitioner Family
DX: M79.604 Pain in right leg (principal)
CPT/HCPCS: 93971

== ENCOUNTER → 2023-07-20 08:10 | Outpatient (CLI) | payer OTHER, SELFPAY ==
[2023-07-20 08:40] LABS: Hemoglobin A1C% w Est Avg Glu 5.9 % (4.0-6.0)
[2023-07-20 09:11] LABS: Alanine Aminotransferase 76 IU/L (<50); Albumin 4.3 g/dL (3.5-5.0); Albumin Globulin Ratio 1.4 (1.0-2.8); Alkaline Phosphatase 65 U/L (38-126); Aspartate Aminotransferase 40 IU/L (17-59); Blood Urea Nitrogen 16 mg/dL (9-20); Calcium 9.7 mg/dL (8.4-10.2); Carbon Dioxide 33 mmol/L (22-32); Chloride 102 mmol/L (98-107); Estimated Glomerular Filt Rate > 60 mL/min (>60); Glucose 130 mg/dL (80-110); HEMOLYSIS < 15 (0-50); Potassium 5.2 mmol/L (3.4-5.1); Sodium 138 mmol/L (137-145); Total Protein 7.3 g/dL (6.3-8.2)
== END ==
PROVIDERS: Family Provider Family Medicine; PCP Family Medicine; Referring Provider Family Medicine; Visit Provider Family Medicine
DX: E78.00 Pure hypercholesterolemia, unspecified (principal); I10 Essential (primary) hypertension; Z95.2 Presence of prosthetic heart valve
CPT/HCPCS: 36415; 80053; 83036

== ENCOUNTER → 2023-11-20 16:05 | Outpatient (CLI) | payer OTHER, SELFPAY ==
--- NOTE | 2023-11-20 16:06 | DI.ECHO.S_ITS ---
[facility] : : [address] [facility] : : [place], : : [place] [address] : : Phone: [phone] Echocardiogram Report + + :Name: DIANE OQUENDO Study Date: 11/20/2023 Height: 72 in : :[facility] ReadingLocation: Weight: 235 lb : : Gender: Male BSA: 2.3 m2 : :: 1955 Age: 68 yrs BP: 153/99 mmHg: :Reason For Study: PRESENCE OF PROSTHETIC HEART VALVE : :Ordering Physician: AKANKSHA, : :VIKAS Performed By: Truong Mahoney : :Referring: VIKAS LUNDY : + + Interpretation Summary 1) Normal left ventricular size, wall motion, and systolic function (EF 55- 60%). 2) Mildly enlarged right ventricle with low normal function. 3) There is a bioprosthetic aortic valve that is well seated and opens well (mean gradient 19mmHg). No aortic regurgitation is present. 4) Mildly enlarged ascending aorta (4.2cm diameter). 5) Compared to the Echo done 10/20/2022, no significant change. Procedure: A two-dimensional transthoracic echocardiogram with color flow and Doppler was performed. The study quality was technically adequate. Comparison is made with the echocardiogram of 10/20/2022. The patient was in normal sinus rhythm during the exam. The heart rate ranged between 70-95 bpm during the study. Left Ventricle: The left ventricle is normal in size. There is mild concentric left ventricular hypertrophy. The ejection fraction is estimated to be 55-60%. Left ventricular systolic function appears normal without focal wall motion abnormalities. Right Ventricle: The right ventricle is mildly dilated. Right ventricular systolic function is at the lower limits of normal. Atria: The left atrial size is normal. The right atrium is normal in size. The interatrial septum grossly appears intact with no obvious evidence for an atrial septal defect. Mitral Valve: The mitral valve is normal. There is no mitral valve stenosis. There is mild mitral regurgitation. Aortic Valve: BIOPROSTHETIC AV VISUALIZED. The peak aortic velocity is 2.81 m/sec. The aortic valve mean gradient is 19.1 mmHg. No aortic regurgitation is present. Tricuspid Valve: The tricuspid valve is normal. There is no tricuspid stenosis. There is mild tricuspid regurgitation. The right ventricular systolic pressure is estimated to be at least 31.6 mmHg based on an estimated right atrial pressure of 3 mm Hg. Pulmonic Valve: The pulmonic valve is not well visualized. There is no pulmonic valvular stenosis. There is no pulmonic valvular regurgitation. Great Vessels: The aortic root is normal size. The ascending aorta is mildly enlarged. The IVC is of normal diameter and collapses greater than 50% with a sniff. This suggests a low right atrial pressure of 3 mm Hg. Pericardium/ Pleura There is no pericardial effusion. There is no pleural effusion. MMode/2D Measurements & Calculations LVIDd: 4.1 cm LVOT diam: 2.0 cm LVIDs: 2.9 cm Ao root diam: 3.3 cm IVSd: 1.4 cm asc Aorta Diam: 4.2 cm LVPWd: 1.3 cm LV hui. diameter/BSA (cm/m^2): 1.8 LV sys. diameter/BSA (cm/m^2): 1.3 FS: 29.4 % LA A2 area: 19.9 cm2 RA long axis: 5.1 cm LA A4 area: 19.4 cm2 RA area: 16.8 cm2 LA length (vol): 5.6 cm RA vol: 47.1 ml LA vol: 58.6 ml RA : 20.7 ml/m2 LA vol index: 25.7 ml/m2 RVD1 (basal): 4.3 cm IVC diam: 2.0 cm RVD2 (mid): 3.7 cm TAPSE: 1.8 cm Doppler Measurements & Calculations Ao V2 max: 281.4 cm/sec LVOT Max Aaron: 135.5 cm/sec Ao V2 mean: 210.8 cm/sec LV V1 max P.3 mmHg Ao V2 VTI: 55.0 cm LV V1 VTI: 30.7 cm Ao max P.7 mmHg Ao mean P.1 mmHg JAMSHID(I,D): 1.7 cm2 MV E max aaron: 81.3 cm/sec JAMSHID(V,D): 1.4 cm2 MV A max aaron: 86.8 cm/sec JAMSHID indexed to BSA (cm^2/m^2): 0.73 MV E/A: 0.94 sev ratio: 0.56 Med Peak E' Aaron: 7.1 cm/sec E/E' med: 11.5 Lat Peak E' Aaron: 8.2 cm/sec E/E' lat: 9.9 E/e' average: 10.7 MV dec time: 0.27 sec TR max aaron: 267.4 cm/sec TR max P.6 mmHg PA V2 max: 144.5 cm/sec SV(LVOT): 92.1 ml PA V2 mean: 95.1 cm/sec PA mean P.2 mmHg PA pr(Accel): 60.2 mmHg Reading Physician:10:05 AM
== END ==
PROVIDERS: Family Provider Family Medicine; PCP Family Medicine; Referring Provider Internal Medicine Cardiovascular Disease; Visit Provider Internal Medicine Cardiovascular Disease
DX: I77.89 Other specified disorders of arteries and arterioles (principal); Z95.2 Presence of prosthetic heart valve; I08.1 Rheumatic disorders of both mitral and tricuspid valves
CPT/HCPCS: 93306

== ENCOUNTER → 2023-12-26 07:50 | Outpatient (CLI) | payer OTHER, SELFPAY ==
[2023-12-26 09:17] LABS: Hematocrit 49.1 % (41-53); Hemoglobin 16.8 g/dL (13.5-17.5); Mean Corpuscular HGB Conc 34.3 % (30-36); Mean Corpuscular Hemoglobin 32.7 PG (26-34); Mean Corpuscular Volume 95.4 fL (80-100); Platelet Count 187 X10^3/uL (150-400); Red Blood Cell Count 5.15 X10^6/uL (4.5-5.9); Red Cell Distribution Width 13.4 % (11.6-14.8); White Blood Cell Count 5.4 X10^3/uL (4.5-11.0)
[2023-12-26 09:45] LABS: Hemoglobin A1C% w Est Avg Glu 5.5 % (4.0-6.0)
[2023-12-26 09:52] LABS: Alanine Aminotransferase 75 IU/L (<50); Albumin 4.3 g/dL (3.5-5.0); Albumin Globulin Ratio 1.7 (1.0-2.8); Alkaline Phosphatase 62 U/L (38-126); Aspartate Aminotransferase 41 IU/L (17-59); BUN Creatinine Ratio 22.4 (6-22); Bilirubin Total 1.2 mg/dL (0.2-1.3); Blood Urea Nitrogen 19 mg/dL (9-20); Calcium 9.3 mg/dL (8.4-10.2); Carbon Dioxide 28 mmol/L (22-32); Chloride 100 mmol/L (98-107); Cholesterol 142 mg/dL (140-199); Estimated Glomerular Filt Rate > 60 mL/min (>60); Globulin 2.6 g/dL (1.7-4.1); Glucose 125 mg/dL (80-110); HDL Cholesterol 68 mg/dL (40-60); HEMOLYSIS < 15 (0-50); LDL Cholesterol Calculated 56 mg/dL (<100); Potassium 4.3 mmol/L (3.4-5.1); Sodium 135 mmol/L (137-145); Total Protein 6.9 g/dL (6.3-8.2); Triglycerides 89 mg/dL (35-150); Uric Acid 4.4 mg/dL (3.5-8.5)
[2023-12-26 10:12] LABS: TSH w/ Reflex to FT4 1.45 uIU/mL (0.47-4.68)
== END ==
PROVIDERS: Family Provider Family Medicine; PCP Family Medicine; Referring Provider Internal Medicine Cardiovascular Disease; Visit Provider Internal Medicine Cardiovascular Disease
DX: I10 Essential (primary) hypertension (principal); R73.03 Prediabetes; Z95.2 Presence of prosthetic heart valve; M1A.09X0 Idiopathic chronic gout, multiple sites, without tophus (tophi); E78.00 Pure hypercholesterolemia, unspecified
CPT/HCPCS: 36415; 80053; 80061; 83036; 84443; 84550; 85027

== ENCOUNTER → 2024-12-24 07:52 | Outpatient (CLI) | payer OTHER, SELFPAY ==
[2024-12-24 08:50] LABS: Hematocrit 50.6 % (41-53); Hemoglobin 17.2 g/dL (13.5-17.5); Mean Corpuscular HGB Conc 34.0 % (30-36); Mean Corpuscular Hemoglobin 32.1 PG (26-34); Mean Corpuscular Volume 94.4 fL (80-100); Platelet Count 188 X10^3/uL (150-400)
[2024-12-24 09:31] LABS: Uric Acid 4.7 mg/dL (3.5-8.5)
[2024-12-24 09:32] LABS: Alanine Aminotransferase 55 IU/L (<50); Albumin 4.4 g/dL (3.5-5.0); Albumin Globulin Ratio 1.6 (1.0-2.8); Alkaline Phosphatase 60 U/L (38-126); Blood Urea Nitrogen 19 mg/dL (9-20); Calcium 9.5 mg/dL (8.4-10.2); Carbon Dioxide 28 mmol/L (22-32); Chloride 99 mmol/L (98-107); Estimated Glomerular Filt Rate > 60 mL/min (>60); Globulin 2.8 g/dL (1.7-4.1); Glucose 121 mg/dL (70-99); HEMOLYSIS 23 (0-50); Potassium 4.1 mmol/L (3.4-5.1); Sodium 135 mmol/L (137-145); Total Protein 7.2 g/dL (6.3-8.2)
[2024-12-24 10:06] LABS: Cholesterol 147 mg/dL (140-199); HDL Cholesterol 73 mg/dL (40-60); Triglycerides 86 mg/dL (35-150)
--- NOTE | 2024-12-24 13:37 | DI.ECHO.S_ITS ---
[facility] : : [address] : : [id number] : : Phone: [phone] Echocardiogram Report + + :Name: DIANE OQUENDO Study Date: 12/24/2024 Height: 72 in : :[facility] ReadingLocation: Weight: 230 lb : : Gender: Male BSA: 2.3 m2 : :: 1955 Age: 69 yrs BP: 147/92 mmHg: :Reason For Study: S/P AVR : :Ordering Physician: AKANKSHA, : :VIKAS Performed By: Truong Mahoney : :Referring: VIKAS LUNDY : + + Interpretation Summary 1) Normal left ventricular size, wall motion, and systolic function (EF 60- 65%). 2) Mildly enlarged right ventricle with low normal function. 3) There is a bioprosthetic aortic valve that is well seated and opens well (mean gradient 22mmHg). No aortic regurgitation is present. 4) Mildly enlarged ascending aorta (4.3cm diameter). 5) Compared to the Echo done 11/20/2023, no significant change. Procedure: A two-dimensional transthoracic echocardiogram with color flow and Doppler was performed. The study quality was technically good. Comparison is made with the echocardiogram of 11/20/2023. The patient was in normal sinus rhythm during the exam. The patient had occasional PVCs during the exam. Left Ventricle: The left ventricle is normal in size. Left ventricular wall thickness is mildly increased. There is no ventricular septal defect visualized. The ejection fraction is estimated to be 60-65%. There are no focal wall motion abnormalities. Diastolic function is indeterminate. Right Ventricle: The right ventricle is mildly dilated. The right ventricular systolic function is normal. Atria: The left atrial size is normal. The right atrium is mildly dilated. There is no Doppler evidence for an interatrial shunt. Mitral Valve: The mitral valve leaflets are mildly calcified. There is trace mitral regurgitation. Aortic Valve: There is a bioprosthetic aortic valve. The peak aortic velocity is 3.02 m/sec. The aortic valve mean gradient is 21.8 mmHg. No aortic regurgitation is present. Tricuspid Valve: The tricuspid valve leaflets are thin and pliable. There is mild tricuspid regurgitation. The right ventricular systolic pressure is estimated to be at least 31 mmHg based on an estimated right atrial pressure of 3 mm Hg. Pulmonic Valve: The pulmonic valve is not well seen, but is grossly normal. There is no pulmonic valvular regurgitation. Great Vessels: The aortic root is normal size. The ascending aorta is mildly enlarged. The pulmonary artery is not well visualized, but is probably normal size. The IVC is of normal diameter and collapses greater than 50% with a sniff. This suggests a low right atrial pressure of 3 mm Hg. Pericardium/ Pleura There is no pericardial effusion. There is no pleural effusion. MMode/2D Measurements & Calculations LVIDd: 5.0 cm LVOT diam: 1.8 cm LVIDs: 3.3 cm Ao root diam: 3.4 cm FS: 35.2 % asc Aorta Diam: 4.3 cm EPSS: 1.1 cm IVSd: 1.1 cm LVPWd: 1.2 cm LV hui. diameter/BSA (cm/m^2): 2.2 LV sys. diameter/BSA (cm/m^2): 1.4 LA A2 area: 22.4 cm2 RA long axis: 5.8 cm LA A4 area: 19.4 cm2 RA area: 20.5 cm2 LA length (vol): 5.6 cm RA vol: 61.8 ml LA vol: 66.0 ml RA : 27.3 ml/m2 LA vol index: 29.2 ml/m2 IVC diam: 1.9 cm RVD1 (basal): 4.0 cm RVD2 (mid): 3.2 cm TAPSE: 2.1 cm Doppler Measurements & Calculations Ao V2 max: 301.8 cm/sec LVOT Max Aaron: 140.5 cm/sec Ao V2 mean: 221.3 cm/sec LV V1 max P.9 mmHg Ao max P.4 mmHg LV V1 VTI: 32.6 cm Ao mean P.8 mmHg JAMSHID(I,D): 1.3 cm2 Ao V2 VTI: 64.0 cm JAMSHID(V,D): 1.2 cm2 sev ratio: 0.51 JAMSHID indexed to BSA (cm^2/m^2): 0.57 MV E max aaron: 84.2 cm/sec TR max aaron: 263.1 cm/sec MV A max aaron: 88.9 cm/sec TR max P.7 mmHg MV E/A: 0.95 PA V2 max: 121.4 cm/sec Med Peak E' Aaron: 7.1 cm/sec PA V2 mean: 77.0 cm/sec E/E' med: 11.8 PA mean P.8 mmHg Lat Peak E' Aaron: 5.8 cm/sec PA pr(Accel): 46.5 mmHg E/E' lat: 14.5 E/e' average: 13.1 MV dec time: 0.28 sec SV(OT): 82.6 ml Reading Physician:04:19 PM
[2024-12-24 14:17] LABS: Hemoglobin A1C% w Est Avg Glu 5.9 % (4.0-6.0)
== END ==
PROVIDERS: Family Provider Family Medicine; PCP Family Medicine; Referring Provider Family Medicine; Visit Provider Internal Medicine Cardiovascular Disease
DX: I07.1 Rheumatic tricuspid insufficiency (principal); I77.89 Other specified disorders of arteries and arterioles; I77.810 Thoracic aortic ectasia; I49.3 Ventricular premature depolarization; R73.03 Prediabetes; E78.5 Hyperlipidemia, unspecified; I10 Essential (primary) hypertension; Z12.5 Encounter for screening for malignant neoplasm of prostate; M10.9 Gout, unspecified; Z95.2 Presence of prosthetic heart valve
CPT/HCPCS: 36415; 80053; 80061; 83036; 84550; 85027; 93306; G0103